=== PATIENT | female | born 1950 | race Caucasian/White ===

== ENCOUNTER → 2018-02-11 10:14 | Outpatient (CLI) | payer MEDICARE, SELFPAY ==
--- NOTE | 2018-02-11 10:16 | DI.RAD.S_ITS ---
PROCEDURE: XR LUMBAR SPINE MIN 4V INDICATIONS: LOW BACK PAIN TECHNIQUE: 5 views of the lumbar spine acquired. COMPARISON: None. FINDINGS: Bones: 5 nonrib-bearing vertebrae are present. There is normal bony alignment except for a very slight degree of convex rightward scoliosis centered at L2. There is no abnormal subluxation on flexion and extension lateral imaging. No vertebral body compression fractures. No suspicious bony lesions. Mild degenerative disc disease is present along the lumbosacral spine until the L5-S1 level was reached where moderate such degeneration and facet osteoarthritis is present Soft tissues: Overlying bowel gas pattern is normal. No suspicious soft tissue calcifications. Flexion/extension: There is normal range of motion, with preserved normal alignment. IMPRESSION: Mild to moderate degenerative disc disease as discussed above along the lumbosacral spine most prominent at L5-S1, without abnormal subluxation during flexion and extension lateral imaging. Slight convex rightward scoliosis present centered at L2. No trauma seen. Dictated by: Endy Oliveira M.D. on 02/11/2018 at 10:56 Approved by: Endy Oliveira M.D. on 02/11/2018 at 10:58
== END ==
PROVIDERS: Family Provider Family Medicine; PCP Family Medicine; Visit Provider Nurse Practitioner Family
DX: M51.37 Other intervertebral disc degeneration, lumbosacral region (principal); M54.5 Low back pain; G89.29 Other chronic pain
CPT/HCPCS: 72110

== ENCOUNTER → 2018-03-29 11:57 | Outpatient (CLI) | payer MEDICARE, SELFPAY ==
--- NOTE | 2018-03-29 | DI.MRI.S_ITS ---
PROCEDURE: MR LUMBAR SPINE WO CON INDICATIONS: LOW BACK PAIN TECHNIQUE: Noncontrast sagittal T1 spin echo and T2 fast echo, sagittal STIR, axial T1 and T2 fast spin echo through the lumbar spine. In cases with scoliosis, additional coronal T2 fast spin echo may be performed. COMPARISON: [facility], MR, L-SPINE WITH AND WITHOUT CONTR, 07/27/2011, 17:40. [facility], CR, XR LUMBAR SPINE MIN 4V, 02/11/2018, 9:54. FINDINGS: Image quality: Excellent. Alignment and Curvature: There is normal bony alignment. Bone Marrow: Marrow is of normal overall signal. No acute vertebral body compression fractures. Spinal Cord: Conus medullaris terminates at the T12 at the colon level. Visualized cord demonstrates normal signal and size. Paraspinous Soft Tissues: No paravertebral masses. L1-L2: Mild to moderate loss disc height and disc desiccation. There is circumferential disc bulge and disc osteophyte complex. The central canal is mildly narrowed. Mild right foraminal stenosis. Patent left neural foramen. There is progression of disc degeneration compared to 07/27/2011. L2-L3: Mild loss disc height and disc desiccation. There is diffuse posterior disc bulge and disc osteophyte complex. The central canal is patent. Mild right foraminal stenosis. Patent left neural foramen. There is no significant change from 07/27/2011. L3-L4: Mild loss disc height and disc desiccation. There is mild posterior disc bulge and disc osteophyte complex. The central canal is mildly narrowed. Mild left foraminal stenosis. No right foramina stenosis. No significant change from 07/27/2011. L4-L5: Preserved disc height and moderate disc desiccation. There is mild posterior disc bulge and disc osteophyte complex. Moderate bilateral facet arthropathy. The central canal is mildly narrowed. No foraminal stenosis. No significant change from 07/27/2011. L5-S1: Moderate to severe loss of disc height and disc desiccation. There is mild posterior disc bulge and disc osteophyte complex. Mild bilateral facet arthropathy. The central canal is patent. Mild bilateral foraminal stenosis. No significant change from 07/27/2011. IMPRESSION: 1. Multilevel degenerative disc disease and facet arthropathy as described. 2. Mild central canal stenosis at L1-L2, L3-L4 and L4-L5. 3. Mild foraminal stenosis at L1-L2 on the right, L3-L4 on the left and L5-S1 bilaterally. Dictated by: Dave Zimmerman M.D. on 03/29/2018 at 15:28 Approved by: Dave Zimmerman M.D. on 03/29/2018 at 15:41
== END ==
PROVIDERS: PCP Family Medicine; Visit Provider Physical Medicine & Rehabilitation Pain Medicine
DX: M51.36 Other intervertebral disc degeneration, lumbar region (principal); M51.37 Other intervertebral disc degeneration, lumbosacral region; M54.5 Low back pain; M47.816 Spondylosis without myelopathy or radiculopathy, lumbar region; M47.817 Spondylosis without myelopathy or radiculopathy, lumbosacral region; M48.061 Spinal stenosis, lumbar region without neurogenic claudication; M48.07 Spinal stenosis, lumbosacral region
CPT/HCPCS: 72148

== ENCOUNTER → 2018-07-06 12:02 | Outpatient (CLI) | payer MEDICARE, SELFPAY ==
--- NOTE | 2018-07-06 | DI.MG.S_ITS ---
BILATERAL DIGITAL SCREENING MAMMOGRAM 3D/2D WITH CAD: 07/06/2018 CLINICAL: Routine screening. Comparison is made to exams dated: 06/17/2017 mammogram, 06/11/2016 mammogram, and 06/10/2015 mammogram - [facility]. There are scattered fibroglandular elements in both breasts. Current study was also evaluated with a Computer Aided Detection (CAD) system. No significant masses, calcifications, or other findings are seen in either breast. There has been no significant interval change. IMPRESSION: NEGATIVE There is no mammographic evidence of malignancy. A 1 year screening mammogram is recommended. This exam was interpreted at Station ID: [id number]. NOTE: For mammograms, a report in lay terms will be sent to the patient. Approximately 15% of breast malignancies will not be visualized mammographically. In the management of a palpable breast mass, a negative mammogram must not discourage biopsy of a clinically suspicious lesion. Electronically Signed By: Becky leslie/john:07/06/2018 16:33:26 copy to: Claudette Ponce letter sent: Normal Exam ACR BI-RADS Category 1: Negative 3341F
== END ==
PROVIDERS: Family Provider Obstetrics & Gynecology; PCP Family Medicine; Visit Provider Family Medicine
DX: Z12.31 Encounter for screening mammogram for malignant neoplasm of breast (principal)
CPT/HCPCS: 77063; 77067

== ENCOUNTER → 2018-11-23 11:40 | Outpatient (CLI) | payer MEDICARE, SELFPAY ==
[2018-11-23 12:21] LABS: Add Manual Diff / Slide Review NO; Basophils Absolute Auto 0 /uL (0-100); Basophils Percent Auto 0.6 % (0-2); Eosinophils Absolute Auto 100 /uL (0-450); Eosinophils Percent Auto 1.3 % (2-4); Hematocrit 39.5 % (36-46); Hemoglobin 13.4 g/dL (12.0-16.0); Lymphocytes Absolute Auto 1000 /uL (1100-4500); Lymphocytes Percent Auto 20.3 % (25-40); Mean Corpuscular Hemoglobin 29.9 PG (26-34); Mean Corpuscular Volume 87.9 fL (80-100); Monocytes Absolute Auto 400 /uL (0-900); Monocytes Percent Auto 7.4 % (3-14); Neutrophils Absolute Auto 3500 /uL (1500-7000); Neutrophils Percent Auto 70.4 % (50-75); Platelet Count 270 X10^3/uL (150-400); Red Blood Cell Count 4.49 X10^6/uL (4.0-5.2); Red Cell Distribution Width 14.8 % (11.6-14.8)
[2018-11-23 12:32] LABS: Alanine Aminotransferase 31 IU/L (9-52); Albumin 4.7 g/dL (3.5-5.0); Albumin Globulin Ratio 1.4 (1.0-2.8); Alkaline Phosphatase 76 U/L (38-126); Aspartate Aminotransferase 28 IU/L (14-36); BUN Creatinine Ratio 25.7 (6-22); Bilirubin Total 0.5 mg/dL (0.2-1.3); Blood Urea Nitrogen 18 mg/dL (7-17); Calcium 10.3 mg/dL (8.4-10.2); Carbon Dioxide 27 mmol/L (22-32); Chloride 103 mmol/L (98-107); Cholesterol 280 mg/dL (140-199); Estimated Glomerular Filt Rate > 60.0 mL/min (>60); Globulin 3.4 g/dL (1.7-4.1); Glucose 102 mg/dL (80-110); HDL Cholesterol 58 mg/dL (40-60); HEMOLYSIS < 15 (0-50); LDL Cholesterol Calculated 175 mg/dL (<100); Sodium 139 mmol/L (137-145); Total Protein 8.1 g/dL (6.3-8.2); Triglycerides 236 mg/dL (35-150)
[2018-11-23 12:33] LABS: C-Reactive Protein Quant < 0.5 mg/dL (<1.0)
[2018-11-23 12:36] LABS: Rheumatoid Factor < 8.6 IU/mL (<12.0)
[2018-11-23 12:42] LABS: Erythrocyte Sedimentation Rate 18 MM/HR (0-20)
[2018-11-23 13:10] LABS: TSH w/ Reflex to FT4 1.43 uIU/mL (0.47-4.68)
== END ==
PROVIDERS: Family Provider Obstetrics & Gynecology; PCP Family Medicine; Visit Provider Family Medicine
DX: M25.50 Pain in unspecified joint (principal); Z00.00 Encounter for general adult medical examination without abnormal findings; Z13.1 Encounter for screening for diabetes mellitus; Z13.220 Encounter for screening for lipoid disorders
CPT/HCPCS: 36415; 80053; 80061; 84443; 85025; 85651; 86140; 86200; 86430

== ENCOUNTER → 2019-04-03 10:11 | Outpatient (CLI) | payer MEDICARE, SELFPAY ==
[2019-04-03 12:03] LABS: Alanine Aminotransferase 48 IU/L (9-52); Albumin 4.5 g/dL (3.5-5.0); Albumin Globulin Ratio 1.5 (1.0-2.8); Alkaline Phosphatase 73 U/L (38-126); Aspartate Aminotransferase 40 IU/L (14-36); BUN Creatinine Ratio 24.3 (6-22); Bilirubin Total 0.4 mg/dL (0.2-1.3); Blood Urea Nitrogen 17 mg/dL (7-17); Calcium 10.5 mg/dL (8.4-10.2); Carbon Dioxide 29 mmol/L (22-32); Chloride 103 mmol/L (98-107); Cholesterol 273 mg/dL (140-199); Estimated Glomerular Filt Rate > 60.0 mL/min (>60); Glucose 94 mg/dL (80-110); HDL Cholesterol 60 mg/dL (40-60); HEMOLYSIS < 15 (0-50); LDL Cholesterol Calculated 167 mg/dL (<100); Potassium 5.3 mmol/L (3.4-5.1); Sodium 139 mmol/L (137-145); Total Protein 7.5 g/dL (6.3-8.2); Triglycerides 230 mg/dL (35-150)
== END ==
PROVIDERS: PCP Family Medicine; Visit Provider Family Medicine
DX: E78.5 Hyperlipidemia, unspecified (principal); R73.03 Prediabetes
CPT/HCPCS: 36415; 80053; 80061

== ENCOUNTER → 2019-04-07 13:44 | Outpatient (CLI) | payer MEDICARE, SELFPAY ==
[2019-04-07 16:07] LABS: Alanine Aminotransferase 38 IU/L (9-52); Albumin 4.7 g/dL (3.5-5.0); Albumin Globulin Ratio 1.7 (1.0-2.8); Alkaline Phosphatase 68 U/L (38-126); Aspartate Aminotransferase 31 IU/L (14-36); BUN Creatinine Ratio 26.7 (6-22); Bilirubin Total 0.4 mg/dL (0.2-1.3); Blood Urea Nitrogen 16 mg/dL (7-17); Calcium 10.7 mg/dL (8.4-10.2); Carbon Dioxide 29 mmol/L (22-32); Chloride 102 mmol/L (98-107); Estimated Glomerular Filt Rate > 60.0 mL/min (>60); Globulin 2.7 g/dL (1.7-4.1); Glucose 100 mg/dL (80-110); HEMOLYSIS < 15 (0-50); Potassium 4.8 mmol/L (3.4-5.1); Sodium 141 mmol/L (137-145); Total Protein 7.4 g/dL (6.3-8.2)
[2019-04-13 14:35] LABS: Parathyroid Hormone Int 29 pg/mL (14-64)
== END ==
PROVIDERS: PCP Family Medicine; Visit Provider Family Medicine
DX: G89.29 Other chronic pain (principal); M54.9 Dorsalgia, unspecified; R73.03 Prediabetes
CPT/HCPCS: 36415; 80053; 83970

== ENCOUNTER → 2019-07-14 09:44 | Outpatient (CLI) | payer MEDICARE, SELFPAY ==
[2019-07-14 11:04] LABS: Alanine Aminotransferase 22 IU/L (<35); Albumin 4.8 g/dL (3.5-5.0); Albumin Globulin Ratio 1.5 (1.0-2.8); Alkaline Phosphatase 75 U/L (38-126); Aspartate Aminotransferase 26 IU/L (14-36); Bilirubin Total 0.6 mg/dL (0.2-1.3); Blood Urea Nitrogen 15 mg/dL (7-17); Calcium 9.8 mg/dL (8.4-10.2); Carbon Dioxide 27 mmol/L (22-32); Chloride 98 mmol/L (98-107); Estimated Glomerular Filt Rate > 60.0 mL/min (>60); Globulin 3.3 g/dL (1.7-4.1); Glucose 98 mg/dL (80-110); HEMOLYSIS < 15 (0-50); Potassium 3.7 mmol/L (3.4-5.1); Sodium 136 mmol/L (137-145); Total Protein 8.1 g/dL (6.3-8.2)
== END ==
PROVIDERS: PCP Family Medicine; Visit Provider Family Medicine
DX: Z51.81 Encounter for therapeutic drug level monitoring (principal); Z79.1 Long term (current) use of non-steroidal anti-inflammatories (NSAID); E83.52 Hypercalcemia
CPT/HCPCS: 36415; 80053

== ENCOUNTER → 2019-07-29 09:28 | Outpatient (CLI) | payer MEDICARE, SELFPAY ==
--- NOTE | 2019-07-29 | DI.MG.S_ITS ---
BILATERAL DIGITAL SCREENING MAMMOGRAM 3D/2D WITH CAD: 07/29/2019 CLINICAL: Routine screening. Comparison is made to exams dated: 07/06/2018 mammogram, 06/17/2017 mammogram, and 06/11/2016 mammogram - [facility]. There are scattered fibroglandular elements in both breasts. Current study was also evaluated with a Computer Aided Detection (CAD) system. No significant masses, calcifications, or other findings are seen in either breast. There has been no significant interval change. IMPRESSION: NEGATIVE There is no mammographic evidence of malignancy. A 1 year screening mammogram is recommended. This exam was interpreted at Station ID: [id number]. NOTE: For mammograms, a report in lay terms will be sent to the patient. Approximately 15% of breast malignancies will not be visualized mammographically. In the management of a palpable breast mass, a negative mammogram must not discourage biopsy of a clinically suspicious lesion. Electronically Signed By: Jimenez campbell/john:07/31/2019 09:09:50 copy to: Claudette Ponce letter sent: Normal Exam ACR BI-RADS Category 1: Negative 3341F
== END ==
PROVIDERS: PCP Family Medicine; Referring Provider Family Medicine; Visit Provider Family Medicine
DX: Z12.31 Encounter for screening mammogram for malignant neoplasm of breast (principal)
CPT/HCPCS: 77063; 77067

== ENCOUNTER → 2019-11-21 09:19 | Outpatient (CLI) | payer MEDICARE, SELFPAY ==
[2019-11-21 11:13] LABS: BUN Creatinine Ratio 25.8 (6-22); Blood Urea Nitrogen 17 mg/dL (7-17); Calcium 9.9 mg/dL (8.4-10.2); Carbon Dioxide 29 mmol/L (22-32); Chloride 99 mmol/L (98-107); Estimated Glomerular Filt Rate > 60.0 mL/min (>60); Glucose 100 mg/dL (80-110); HEMOLYSIS < 15 (0-50); Sodium 134 mmol/L (137-145)
== END ==
PROVIDERS: PCP Family Medicine; Referring Provider Family Medicine; Visit Provider Family Medicine
DX: Z79.1 Long term (current) use of non-steroidal anti-inflammatories (NSAID) (principal)
CPT/HCPCS: 36415; 80048

== ENCOUNTER → 2020-08-15 09:49 | Outpatient (CLI) | payer MEDICARE, SELFPAY ==
[2020-08-15 11:13] LABS: BUN Creatinine Ratio 29.5 (6-22); Blood Urea Nitrogen 18 mg/dL (7-17); Calcium 9.9 mg/dL (8.4-10.2); Carbon Dioxide 30 mmol/L (22-32); Chloride 101 mmol/L (98-107); Estimated Glomerular Filt Rate > 60.0 mL/min (>60); Glucose 100 mg/dL (80-110); HEMOLYSIS < 15 (0-50); Potassium 4.2 mmol/L (3.4-5.1); Sodium 136 mmol/L (137-145)
== END ==
PROVIDERS: PCP Family Medicine; Referring Provider Family Medicine; Visit Provider Family Medicine
DX: Z51.81 Encounter for therapeutic drug level monitoring (principal); Z79.1 Long term (current) use of non-steroidal anti-inflammatories (NSAID)
CPT/HCPCS: 36415; 80048

== ENCOUNTER → 2020-10-14 08:57 | Outpatient (CLI) | payer MEDICARE, SELFPAY ==
[2020-10-14 10:52] LABS: Alanine Aminotransferase 19 IU/L (<35); Albumin 4.6 g/dL (3.5-5.0); Albumin Globulin Ratio 1.6 (1.0-2.8); Alkaline Phosphatase 83 U/L (38-126); Aspartate Aminotransferase 27 IU/L (14-36); BUN Creatinine Ratio 22.9 (6-22); Bilirubin Total 0.4 mg/dL (0.2-1.3); Blood Urea Nitrogen 16 mg/dL (7-17); Calcium 10.7 mg/dL (8.4-10.2); Carbon Dioxide 28 mmol/L (22-32); Chloride 104 mmol/L (98-107); Cholesterol 230 mg/dL (140-199); Estimated Glomerular Filt Rate > 60.0 mL/min (>60); Globulin 2.9 g/dL (1.7-4.1); Glucose 101 mg/dL (80-110); HDL Cholesterol 75 mg/dL (40-60); HEMOLYSIS < 15 (0-50); LDL Cholesterol Calculated 130 mg/dL (<100); Potassium 5.2 mmol/L (3.4-5.1); Sodium 140 mmol/L (137-145); Total Protein 7.5 g/dL (6.3-8.2); Triglycerides 125 mg/dL (35-150)
== END ==
PROVIDERS: PCP Family Medicine; Referring Provider Family Medicine; Visit Provider Family Medicine
DX: E78.5 Hyperlipidemia, unspecified (principal); E83.52 Hypercalcemia; Z79.1 Long term (current) use of non-steroidal anti-inflammatories (NSAID)
CPT/HCPCS: 36415; 80053; 80061

== ENCOUNTER → 2020-10-17 13:46 | Outpatient (CLI) | payer MEDICARE, SELFPAY ==
[2020-10-17] MEDS: COVID-19 VACC #1, MRNA(MOD) 100 MCG/0.5 ML VIAL IM (13:57)
== END ==
PROVIDERS: PCP Family Medicine; Visit Provider Internal Medicine
DX: Z23 Encounter for immunization (principal)
CPT/HCPCS: 0011A; 91301

== ENCOUNTER → 2020-10-25 15:11 | Outpatient (CLI) | payer MEDICARE, SELFPAY ==
--- NOTE | 2020-10-25 15:13 | DI.MG.S_ITS ---
BILATERAL DIGITAL SCREENING MAMMOGRAM 3D/2D WITH CAD: 10/25/2020 CLINICAL: Routine screening. Comparison is made to exams dated: 07/29/2019 mammogram, 07/06/2018 mammogram, and 06/17/2017 mammogram - [facility]. There are scattered fibroglandular elements in both breasts. Current study was also evaluated with a Computer Aided Detection (CAD) system. There is a new irregular asymmetry in the left breast anterior depth central to the nipple seen on the craniocaudal view only. No other significant masses, calcifications, or other findings are seen in either breast. IMPRESSION: INCOMPLETE: NEEDS ADDITIONAL IMAGING EVALUATION The new irregular asymmetry in the left breast is indeterminate. Additional views with possible ultrasound are recommended. This exam was interpreted at Station ID: [id number]. NOTE: For mammograms, a report in lay terms will be sent to the patient. Approximately 15% of breast malignancies will not be visualized mammographically. In the management of a palpable breast mass, a negative mammogram must not discourage biopsy of a clinically suspicious lesion. Electronically Signed By: Abundio Lujan M.D. jr/:10/25/2020 16:43:26 copy to: Claudette Ponce letter sent: Additional Imaging Needed ACR BI-RADS Category 0: Incomplete 3340F
== END ==
PROVIDERS: PCP Family Medicine; Referring Provider Family Medicine; Visit Provider Family Medicine
DX: Z12.31 Encounter for screening mammogram for malignant neoplasm of breast (principal)
CPT/HCPCS: 77063; 77067

== ENCOUNTER → 2020-10-30 12:02 | Outpatient (CLI) | payer MEDICARE, SELFPAY ==
[2020-10-30 13:27] LABS: BUN Creatinine Ratio 27.9 (6-22); Blood Urea Nitrogen 19 mg/dL (7-17); Calcium 10.3 mg/dL (8.4-10.2); Carbon Dioxide 29 mmol/L (22-32); Chloride 102 mmol/L (98-107); Estimated Glomerular Filt Rate > 60.0 mL/min (>60); Glucose 99 mg/dL (80-110); HEMOLYSIS < 15 (0-50); Potassium 4.1 mmol/L (3.4-5.1); Sodium 139 mmol/L (137-145)
[2020-10-31 11:12] LABS: Calcium 9.8 mg/dL (8.7-10.3); Parathyroid Hormone, Intact 31 pg/mL (15-65)
== END ==
PROVIDERS: PCP Family Medicine; Referring Provider Family Medicine; Visit Provider Family Medicine
DX: E83.52 Hypercalcemia (principal); E87.5 Hyperkalemia
CPT/HCPCS: 36415; 80048; 82310; 83970

== ENCOUNTER → 2020-11-01 14:46 | Outpatient (CLI) | payer MEDICARE, SELFPAY ==
--- NOTE | 2020-11-01 14:47 | DI.MG.S_ITS ---
UNILATERAL LEFT DIGITAL DIAGNOSTIC MAMMOGRAM 3D/2D WITH ADDITIONAL VIEWS: 11/01/2020 CLINICAL: Additional evaluation requested from prior study. Comparison is made to exams dated: 10/25/2020 mammogram, 07/29/2019 mammogram, and 07/06/2018 mammogram - [facility]. There are scattered fibroglandular elements in left breast. There is a 0.6 cm oval focal asymmetry in the left breast at 5 o'clock posterior depth. This appears less prominent. No other significant masses or calcifications are seen in the breast. IMPRESSION: INCOMPLETE: NEEDS ADDITIONAL IMAGING EVALUATION The 0.6 cm oval focal asymmetry in the left breast resembles a lymph node and is indeterminate. An ultrasound is recommended for further evaluation and is scheduled to immediately follow this examination. This exam was interpreted at Station ID: [id number]. NOTE: For mammograms, a report in lay terms will be sent to the patient. Approximately 15% of breast malignancies will not be visualized mammographically. In the management of a palpable breast mass, a negative mammogram must not discourage biopsy of a clinically suspicious lesion. Electronically Signed By: Rosas Yousif M.D. aty/:11/01/2020 16:07:30 copy to: Claudette Ponce ACR BI-RADS Category 0: Incomplete 3340F
--- NOTE | 2020-11-01 14:47 | DI.US.S_ITS ---
ULTRASOUND OF LEFT BREAST: 11/01/2020 CLINICAL: Left breast asymmetry. Comparison is made to exams dated: 11/01/2020 mammogram, 10/25/2020 mammogram, 07/29/2019 mammogram, 07/06/2018 mammogram, and 06/17/2017 mammogram - [facility]. Color flow and real-time ultrasound of the left breast were performed. Patterson scale images of the real-time examination were reviewed. No sonographic abnormality is seen to correlate with craniocaudal view asymmetry. No sonographic abnormalities are seen in the left breast. IMPRESSION: PROBABLY BENIGN There is no abnormality seen in the left breast to correspond with the mammography finding which resembles a lymph node. A follow-up left mammogram with possible ultrasound in 6 months is recommended to demonstrate stability. Findings and recommendations were conveyed to the patient during today's evaluation. This exam was interpreted at Station ID: [id number]. Electronically Signed By: Rosas Yousif M.D. aty/:11/01/2020 16:06:55 copy to: Claudette Ponce letter sent: Followup Recommended Ultrasound BI-RADS: 3 Probably benign
== END ==
PROVIDERS: PCP Family Medicine; Referring Provider Family Medicine; Visit Provider Family Medicine
DX: R92.8 Other abnormal and inconclusive findings on diagnostic imaging of breast (principal); N64.89 Other specified disorders of breast
CPT/HCPCS: 76642; 77065; G0279

== ENCOUNTER → 2020-11-14 09:56 | Outpatient (CLI) | payer MEDICARE, SELFPAY ==
[2020-11-14] MEDS: COVID-19 VACC #2, MRNA(MOD) 100 MCG/0.5 ML VIAL IM (10:00)
== END ==
PROVIDERS: PCP Family Medicine; Visit Provider Internal Medicine
DX: Z23 Encounter for immunization (principal)
CPT/HCPCS: 0012A; 91301

== ENCOUNTER → 2021-04-29 12:40 | Outpatient (CLI) | payer MEDICARE, SELFPAY ==
--- NOTE | 2021-04-29 12:41 | DI.MG.S_ITS ---
UNILATERAL LEFT DIGITAL DIAGNOSTIC MAMMOGRAM 3D/2D SHORT-TERM FOLLOW-UP: 04/29/2021 CLINICAL: Short term follow up for the left breast. Comparison is made to exams dated: 11/01/2020 mammogram, 10/25/2020 mammogram, 07/29/2019 mammogram, 07/06/2018 mammogram, 06/17/2017 mammogram, and 11/01/2020 [facility]. There are scattered fibroglandular elements in left breast. There is a 0.6 cm oval focal asymmetry in the left breast at 5 o'clock posterior depth. This is not significantly changed and was not seen on the prior ultrasound. No other significant masses or calcifications are seen in the breast. IMPRESSION: PROBABLY BENIGN The 0.6 cm oval focal asymmetry in the left breast resembles a lymph node and is probably benign. A follow-up mammogram in 6 months is recommended to demonstrate stability. This exam was interpreted at Station ID: [id number]. NOTE: For mammograms, a report in lay terms will be sent to the patient. Approximately 15% of breast malignancies will not be visualized mammographically. In the management of a palpable breast mass, a negative mammogram must not discourage biopsy of a clinically suspicious lesion. Electronically Signed By: Rory mcneil/john:04/29/2021 13:16:25 copy to: Claudette Ponce letter sent: Followup Recommended ACR BI-RADS Category 3: Probably benign 3343F
== END ==
PROVIDERS: PCP Family Medicine; Referring Provider Family Medicine; Visit Provider Family Medicine
DX: R92.8 Other abnormal and inconclusive findings on diagnostic imaging of breast (principal); N64.89 Other specified disorders of breast
CPT/HCPCS: 77065; G0279

== ENCOUNTER → 2021-05-07 11:07 | Outpatient (CLI) | payer MEDICARE, SELFPAY ==
--- NOTE | 2021-05-07 11:10 | DI.RAD.S_ITS ---
PROCEDURE: XR KNEE RT 3V INDICATIONS: right knee pain TECHNIQUE: 3 views of the knee were acquired. COMPARISON: None. FINDINGS: Bones: No fractures or dislocations. No suspicious bony lesions. There is moderate lateral and moderate to severe medial femorotibial joint space narrowing seen, with associated remodeling changes including subchondral sclerosis and osteophyte formation along the jointline. On the sunrise view, there is mild patellofemoral joint space narrowing seen. Osteophyte formation can be seen along the margins of the patella. Soft tissues: Calcification is seen along the joint line, which is attributed to meniscal calcification. There is a aibp-vh-bviucuqi joint effusion. IMPRESSION: Osteoarthritic degenerative changes are seen, which are overall worst involving the medial femorotibial compartment. Dictated by: Suraj Mijares M.D. on 05/07/2021 at 10:30 Approved by: Suraj Mijares M.D. on 05/07/2021 at 10:32
== END ==
PROVIDERS: PCP Family Medicine; Referring Provider Physician Assistant; Visit Provider Physician Assistant
DX: M17.11 Unilateral primary osteoarthritis, right knee (principal); M25.461 Effusion, right knee; M25.761 Osteophyte, right knee
CPT/HCPCS: 73562

== ENCOUNTER → 2021-05-29 11:05 | Outpatient (CLI) | payer MEDICARE, SELFPAY ==
[2021-05-29 12:46] LABS: BUN Creatinine Ratio 20.9 (6-22); Blood Urea Nitrogen 14 mg/dL (7-17); Calcium 10.5 mg/dL (8.4-10.2); Carbon Dioxide 26 mmol/L (22-32); Chloride 104 mmol/L (98-107); Estimated Glomerular Filt Rate > 60.0 mL/min (>60); Glucose 94 mg/dL (80-110); HEMOLYSIS < 15 (0-50); Sodium 139 mmol/L (137-145)
[2021-05-30 14:08] LABS: Calcium 10.6 mg/dL (8.7-10.3); Parathyroid Hormone, Intact 30 pg/mL (15-65)
== END ==
PROVIDERS: PCP Family Medicine; Referring Provider Family Medicine; Visit Provider Family Medicine
DX: Z79.1 Long term (current) use of non-steroidal anti-inflammatories (NSAID) (principal); E83.52 Hypercalcemia
CPT/HCPCS: 36415; 80048; 82310; 83970

== ENCOUNTER → 2021-07-16 10:14 | Outpatient (CLI) | payer MEDICARE, SELFPAY ==
[2021-07-16 13:44] LABS: Blood Urea Nitrogen 17 mg/dL (7-17); Calcium 10.2 mg/dL (8.4-10.2); Carbon Dioxide 29 mmol/L (22-32); Chloride 103 mmol/L (98-107); Estimated Glomerular Filt Rate > 60.0 mL/min (>60); Glucose 95 mg/dL (80-110); HEMOLYSIS < 15 (0-50); Sodium 141 mmol/L (137-145)
== END ==
PROVIDERS: PCP Family Medicine; Referring Provider Family Medicine; Visit Provider Family Medicine
DX: E83.52 Hypercalcemia (principal); Z79.1 Long term (current) use of non-steroidal anti-inflammatories (NSAID)
CPT/HCPCS: 36415; 80048

== ENCOUNTER → 2022-01-05 08:46 | Outpatient (CLI) | payer MEDICARE, SELFPAY ==
--- NOTE | 2022-01-05 08:50 | DI.MG.S_ITS ---
BILATERAL DIGITAL DIAGNOSTIC MAMMOGRAM 3D/2D: 01/05/2022 CLINICAL: Short follow up, due bilateral. Comparison is made to exams dated: 04/29/2021 mammogram, 11/01/2020 mammogram, 10/25/2020 mammogram, 07/29/2019 mammogram, 07/06/2018 mammogram, and 11/01/2020 ultrasound - [facility]. There are scattered fibroglandular elements in both breasts. There is a 0.6 cm oval focal asymmetry in the left breast at 5 o'clock posterior depth. This is less prominent and was not seen on the prior ultrasound. No other significant masses, calcifications, or other findings are seen in either breast. IMPRESSION: PROBABLY BENIGN The 0.6 cm oval focal asymmetry in the left breast resembles fibroglandular tissue or a lymph node and is probably benign. A follow-up diagnostic mammogram in 12 months is recommended. Based on the Tyrer Cuzick model (a risk assessment model) the patient's lifetime risk is 4.2% and her 10 year risk is 2.9%. According to the ACR, ACS, and NCCN guidelines, an annual breast MRI exam along with mammogram is recommended if the patient's lifetime risk is 20% or greater. This exam was interpreted at Station ID: [id number]. NOTE: For mammograms, a report in lay terms will be sent to the patient. Approximately 15% of breast malignancies will not be visualized mammographically. In the management of a palpable breast mass, a negative mammogram must not discourage biopsy of a clinically suspicious lesion. Electronically Signed By: Rory Voss M.D. ar/:01/05/2022 09:15:25 copy to: Claudette Ponce letter sent: Followup Recommended ACR BI-RADS Category 3: Probably benign 3343F
== END ==
PROVIDERS: PCP Family Medicine; Referring Provider Family Medicine; Visit Provider Family Medicine
DX: R92.8 Other abnormal and inconclusive findings on diagnostic imaging of breast (principal); N64.89 Other specified disorders of breast
CPT/HCPCS: 77066; G0279

== ENCOUNTER → 2022-07-03 12:03 | Outpatient (CLI) | payer MEDICARE, SELFPAY ==
[2022-07-03 15:21] LABS: Alanine Aminotransferase 44 IU/L (<35); Albumin 4.6 g/dL (3.5-5.0); Albumin Globulin Ratio 1.5 (1.0-2.8); Alkaline Phosphatase 83 U/L (38-126); Aspartate Aminotransferase 38 IU/L (14-36); BUN Creatinine Ratio 23.4 (6-22); Bilirubin Total 0.5 mg/dL (0.2-1.3); Blood Urea Nitrogen 15 mg/dL (7-17); Calcium 9.8 mg/dL (8.4-10.2); Carbon Dioxide 27 mmol/L (22-32); Chloride 104 mmol/L (98-107); Cholesterol 267 mg/dL (140-199); Estimated Glomerular Filt Rate > 60 mL/min (>60); Globulin 3.1 g/dL (1.7-4.1); Glucose 91 mg/dL (80-110); HDL Cholesterol 62 mg/dL (40-60); HEMOLYSIS < 15 (0-50); LDL Cholesterol Calculated 169 mg/dL (<100); Potassium 5.2 mmol/L (3.4-5.1); Sodium 138 mmol/L (137-145); Total Protein 7.7 g/dL (6.3-8.2); Triglycerides 180 mg/dL (35-150)
== END ==
PROVIDERS: PCP Family Medicine; Referring Provider Family Medicine; Visit Provider Family Medicine
DX: E78.5 Hyperlipidemia, unspecified (principal)
CPT/HCPCS: 36415; 80053; 80061

== ENCOUNTER → 2022-07-13 10:20 | Outpatient (CLI) | payer MEDICARE, SELFPAY ==
[2022-07-13 11:46] LABS: Add Manual Diff / Slide Review NO; Basophils Absolute Auto 0 /uL (0-100); Basophils Percent Auto 0.6 % (0-2); Eosinophils Absolute Auto 200 /uL (0-450); Eosinophils Percent Auto 3.2 % (2-4); Hematocrit 39.7 % (36-46); Hemoglobin 13.3 g/dL (12.0-16.0); Lymphocytes Absolute Auto 1800 /uL (1100-4500); Lymphocytes Percent Auto 35.6 % (25-40); Mean Corpuscular HGB Conc 33.5 % (30-36); Mean Corpuscular Hemoglobin 29.9 PG (26-34); Mean Corpuscular Volume 89.2 fL (80-100); Monocytes Absolute Auto 400 /uL (0-900); Monocytes Percent Auto 8.8 % (3-14); Neutrophils Absolute Auto 2600 /uL (1500-7000); Neutrophils Percent Auto 51.8 % (50-75); Platelet Count 271 X10^3/uL (150-400); Red Blood Cell Count 4.45 X10^6/uL (4.0-5.2); Red Cell Distribution Width 13.7 % (11.6-14.8); White Blood Cell Count 5.1 X10^3/uL (4.5-11.0)
== END ==
PROVIDERS: PCP Family Medicine; Referring Provider Family Medicine; Visit Provider Family Medicine
DX: E78.2 Mixed hyperlipidemia (principal); R79.89 Other specified abnormal findings of blood chemistry
CPT/HCPCS: 36415; 85025

== ENCOUNTER → 2022-12-04 13:40 | Outpatient (CLI) | payer MEDICARE, SELFPAY ==
[2022-12-07 10:38] LABS: Fecal Immunochemical Test Negative (Negative)
== END ==
PROVIDERS: PCP Family Medicine; Referring Provider Family Medicine; Visit Provider Family Medicine
DX: K63.5 Polyp of colon (principal); Z12.11 Encounter for screening for malignant neoplasm of colon
CPT/HCPCS: 82274

== ENCOUNTER → 2023-01-06 10:17 | Outpatient (CLI) | payer MEDICARE, SELFPAY ==
--- NOTE | 2023-01-06 10:18 | DI.MG.S_ITS ---
BILATERAL DIGITAL DIAGNOSTIC MAMMOGRAM 3D/2D: 01/06/2023 CLINICAL: Short term follow up of the left breast, due for bilateral imaging. Comparison is made to exams dated: 01/05/2022 mammogram, 04/29/2021 mammogram, 11/01/2020 mammogram, and 10/25/2020 mammogram - [facility]. There are scattered areas of fibroglandular density in both breasts (category b / 25%-50% glandular tissue). There is a stable 0.6 cm oval focal asymmetry in the left breast at 5 o'clock posterior depth. This was not seen on the prior ultrasound. No other significant masses, calcifications, or other findings are seen in either breast. IMPRESSION: BENIGN The 0.6 cm oval focal asymmetry in the left breast resembles fibroglandular tissue or a lymph node and is benign, stable for 2 years. There is no mammographic evidence of malignancy. Return to annual mammogram screening schedule is recommended. Based on the Tyrer Cuzick model (a risk assessment model) the patient's lifetime risk is 4.0% and her 10 year risk is 2.9%. According to the ACR, ACS, and NCCN guidelines, an annual breast MRI exam along with mammogram is recommended if the patient's lifetime risk is 20% or greater. This exam was interpreted at Station ID: [id number]. NOTE: For mammograms, a report in lay terms will be sent to the patient. Approximately 15% of breast malignancies will not be visualized mammographically. In the management of a palpable breast mass, a negative mammogram must not discourage biopsy of a clinically suspicious lesion. Electronically Signed By: Jefferson Durham M.D. lc/:01/06/2023 10:51:27 copy to: Claudette Ponce letter sent: Normal Exam ACR BI-RADS Category 2: Benign Finding(s) 3342F
== END ==
PROVIDERS: PCP Family Medicine; Referring Provider Family Medicine; Visit Provider Family Medicine
DX: R92.8 Other abnormal and inconclusive findings on diagnostic imaging of breast (principal); N64.89 Other specified disorders of breast
CPT/HCPCS: 77066; G0279

== ENCOUNTER 2023-07-29 07:57 | Day surgery (SDC) | payer MEDICARE, SELFPAY ==
--- NOTE | 2023-07-29 | PATH_ITS ---
[facility] Accession Number: [id number] No. of containers..02 Tissue . 01 Material submitted: . PART A: colon - CECAL POLYP PART B: colon - ASCENDING POLYPS . 01 Diagnosis: A. Cecal Polyp: Tubular adenoma. . B. Ascending Colon Polyps: Tubular adenomas. MRV 08/02/2023 1504 Local . 01 Electronically signed: . Ollie Marques MD, PhD, Pathologist NPI- [id number] . 01 Gross description: . Part A: CECAL POLYP: Received in formalin are 4 fragment(s) of hughes, soft tissue measuring 0.2 x 0.1 x 0.1 cm to 0.5 x 0.3 x 0.2 cm submitted entirely in 1 cassette(s) Part B: ASCENDING POLYPS: Received in formalin are 3 fragment(s) of hughes, soft tissue measuring 0.3 x 0.2 x 0.2 cm to 0.6 x 0.3 x 0.3 cm submitted entirely in 1 cassette(s) /ANA 07/30/2023 2256 Local . 01 Pathologist provided ICD-10: D12.0, D12.2 . 01 CPT . 249859, 313475 Specimen Comment: A courtesy copy of this report has been sent to [phone] Performed at: 01 [facility] [address] [place] [address], [place], [place] [id number] MD Jimenez Sevilla MD Phone: [phone]
--- NOTE | 2023-07-29 08:43 | P.HP_ITS ---
History of Present Illness History of Present Illness Date Patient Seen: 07/29/23 Time Patient Seen: 08:43 Chief complaint: Colonoscopy Narrative: Rabia is a 73 year old woman here for a colonoscopy. Her last one was in 2019 and some polyps were removed. She had another colonoscopy about 10 years before that one. No family history of colon cancer. [facility] Medical History (Updated 07/29/23 @ 08:44 by Joey Long MD) Osteoarthritis of right knee Abnormal mammogram of left breast NSAID long-term use Hypercalcemia Shingles (~2018) Plantar fasciitis Cyst of skin (2009) Colon polyps (2010) Hemorrhoids (02/2015) Fibroids (2003) History of heavy periods (2001) Vertigo (1988) Chicken pox (1954) Mumps (1969) Chronic back pain (1994) Chronic headaches History of SCC (squamous cell carcinoma) of skin (2006) Transient global amnesia (~01/2017) Surgical History History of colonoscopy with polypectomy (2010) Normal colonoscopy (2014) Anesthesia History of back surgery (1994) S/P skin biopsy (02/11/15) Status post hysterectomy (2004) History of third molar tooth extraction Family History Child Age: 42 Mental health problem Bipolar disorder Father Skin cancer Grandfather Cancer Lung cancer Broken hip Grandmother Stroke Mother Cervical cancer Cancer Grandfather Heart disease Heart attack Grandmother Cancer Uterine cancer Brother No problems noted. Sister No problems noted. Sister No problems noted. Social History Smoking Status: Never smoker Meds Home Medications and Allergies Home Medications Medication Instructions Recorded Confirmed Type calcium See Rx Instructions PO .COMPLEX 06/12/21 11/20/22 History meloxicam 15 mg tablet 15 mg PO DAILY #90 tabs 02/19/22 11/20/22 Rx estradiol 0.5 mg tablet 0.5 mg PO DAILY #90 tabs 07/03/22 11/20/22 Rx hydrocodone 5 mg-acetaminophen 325 1 tab PO Q6-8H PRN pain #20 tabs 11/20/22 11/20/22 Rx mg tablet methylprednisolone 4 mg tablets in See Rx Instructions PO PER PKG DIR 06/02/23 Rx a dose pack (Medrol (Ata)) #21 ea cyclobenzaprine 5 mg tablet See Rx Instructions .Route 12/07/22 Rx .COMPLEX #30 tabs trazodone 50 mg tablet 75 mg (1.5 x 50 mg) PO BEDTIME PRN 12/14/22 Rx insomnia #135 tabs sodium,potassium,mag sulfates 17.5 See Rx Instructions PO .COMPLEX 06/02/23 Rx gram-3.13 gram-1.6 gram oral soln #354 mL (Suprep Bowel Prep Kit) Allergies Allergy/AdvReac Type Severity Reaction Status Date / Time No Known Drug Allergies Allergy Verified 11/20/22 11:17 Exam Const General: healthy appearing Resp Effort & Inspection: normal respiratory effort Assessment & Plan Assessment and plan (1) History of colon polyps: Status: Acute Plan We discussed the risks and benefits of colonoscopy for screening and history of polyps and she would like to proceed.
[2023-07-29 08:52] VITALS: BP 139/70; PULSE 83; RESP 16; TEMP 36.2; O2SAT 98
[2023-07-29] MEDS: LACTATED RINGERS 1,000 ML 42 ML IV (09:00)
[2023-07-29 09:35] VITALS: BP 101/56; PULSE 74; RESP 19; TEMP 36.6; O2SAT 95
--- NOTE | 2023-07-29 09:39 | PM.OP.COLON ---
Operative Date/Time/Diagnoses Date of procedure: 07/29/23 Time of procedure: 09:39 Pre-op diagnosis: History of polyps Post-op diagnosis: same Procedure & Clinicians Study performed: Colonoscopy Surgeon: Joey Long Procedure Notes Procedure in detail: Surgeon: Joey Long MD Anesthesia: Magali Galindo CRNA Procedure: The patient was brought to the endoscopy suite, placed in left lateral decubitus position. The patient was connected to monitoring devices. A time-out was performed. Sedation was administered. Once the patient was adequately sedated, a digital rectal exam was performed and was normal. The scope was then inserted and advanced to the cecum where the appendiceal orifice was identified and photographed. The scope was then slowly withdrawn over greater than 6 minutes. The mucosa was thoroughly inspected. There was a 5 mm polyp in the cecum removed with a cold snare. There were two 5 mm polyps in the ascending colon removed with cold snare and sent together. The scope was retroflexed in the rectum. No other abnormalities were seen. The scope was straightened and removed. The patient was awakened and brought to recovery. Scope withdrawal time: 11 minutes Sedation time: 15 minutes EBL: 3 mL Findings: 3 small polyps in the cecum and ascending colon Post-procedure Disposition: PACU
[2023-07-29 09:40] VITALS: BP 106/55; PULSE 73; RESP 15; O2SAT 96
[2023-07-29 09:45] VITALS: BP 105/57; PULSE 68; RESP 12; O2SAT 98
[2023-07-29 09:50] VITALS: BP 119/64; PULSE 72; RESP 14; O2SAT 98
== END 2023-07-29 10:00 | disposition home or self-care (01) ==
PROVIDERS: PCP Family Medicine; Referring Provider Surgery; Visit Provider Surgery
PROC: 0DJD8ZZ Inspection of Lower Intestinal Tract, Via Natural or Artificial Opening Endoscopic (ICD-10-PCS; CPT 45378; principal; 2023-07-29 08:45)
DX: Z12.11 Encounter for screening for malignant neoplasm of colon (principal); Z86.010 Personal history of colon polyps; D12.0 Benign neoplasm of cecum; D12.2 Benign neoplasm of ascending colon
CPT/HCPCS: 45385; J2704

== ENCOUNTER → 2024-01-10 10:58 | Outpatient (CLI) | payer MEDICARE, SELFPAY ==
--- NOTE | 2024-01-10 | DI.MG.S_ITS ---
BILATERAL DIGITAL SCREENING MAMMOGRAM 3D/2D WITH CAD: 01/10/2024 CLINICAL: Routine screening. Comparison is made to exams dated: 01/06/2023 mammogram, 01/05/2022 mammogram, and 10/25/2020 mammogram - . There are scattered areas of fibroglandular density in both breasts (category b / 25%-50% glandular tissue). Current study was also evaluated with a Computer Aided Detection (CAD) system. No significant masses, calcifications, or other findings are seen in either breast. There has been no significant interval change. IMPRESSION: NEGATIVE There is no mammographic evidence of malignancy. A 1 year screening mammogram is recommended. Based on the Tyrer Cuzick model (a risk assessment model) the patient's lifetime risk is 3.7% and her 10 year risk is 3.0%. According to the ACR, ACS, and NCCN guidelines, an annual breast MRI exam along with mammogram is recommended if the patient's lifetime risk is 20% or greater. This exam was interpreted at Station ID: [id number]. NOTE: For mammograms, a report in lay terms will be sent to the patient. Approximately 15% of breast malignancies will not be visualized mammographically. In the management of a palpable breast mass, a negative mammogram must not discourage biopsy of a clinically suspicious lesion. Electronically Signed By: Jefferson french/john:01/10/2024 11:40:34 letter sent: Normal Exam ACR BI-RADS Category 1: Negative 3341F
== END ==
PROVIDERS: PCP Family Medicine; Referring Provider Family Medicine; Visit Provider Family Medicine
DX: Z12.31 Encounter for screening mammogram for malignant neoplasm of breast (principal); R92.323 Mammographic fibroglandular density, bilateral breasts
CPT/HCPCS: 77063; 77067

== ENCOUNTER → 2024-02-09 11:13 | Outpatient (CLI) | payer MEDICARE, SELFPAY ==
[2024-02-09 11:55] LABS: Add Manual Diff / Slide Review NO; Basophils Absolute Auto 0 /uL (0-100); Basophils Percent Auto 0.7 % (0-2); Eosinophils Absolute Auto 100 /uL (0-450); Eosinophils Percent Auto 1.1 % (2-4); Hematocrit 40.6 % (36-46); Hemoglobin 13.6 g/dL (12.0-16.0); Lymphocytes Absolute Auto 1300 /uL (1100-4500); Lymphocytes Percent Auto 23.1 % (25-40); Mean Corpuscular HGB Conc 33.4 % (30-36); Mean Corpuscular Hemoglobin 29.8 PG (26-34); Mean Corpuscular Volume 89.3 fL (80-100); Monocytes Absolute Auto 400 /uL (0-900); Monocytes Percent Auto 7.6 % (3-14); Neutrophils Absolute Auto 3700 /uL (1500-7000); Neutrophils Percent Auto 67.5 % (50-75); Platelet Count 226 X10^3/uL (150-400); Red Blood Cell Count 4.55 X10^6/uL (4.0-5.2); Red Cell Distribution Width 13.7 % (11.6-14.8); White Blood Cell Count 5.4 X10^3/uL (4.5-11.0)
[2024-02-09 12:08] LABS: Alanine Aminotransferase 21 IU/L (<35); Albumin 4.3 g/dL (3.5-5.0); Albumin Globulin Ratio 1.5 (1.0-2.8); Alkaline Phosphatase 79 U/L (38-126); Aspartate Aminotransferase 25 IU/L (14-36); Bilirubin Total 0.6 mg/dL (0.2-1.3); Blood Urea Nitrogen 17 mg/dL (7-17); Calcium 9.7 mg/dL (8.4-10.2); Carbon Dioxide 25 mmol/L (22-32); Chloride 107 mmol/L (98-107); Cholesterol 253 mg/dL (140-199); Estimated Glomerular Filt Rate > 60 mL/min (>60); Globulin 2.8 g/dL (1.7-4.1); Glucose 103 mg/dL (80-110); HDL Cholesterol 61 mg/dL (40-60); HEMOLYSIS < 15 (0-50); LDL Cholesterol Calculated 163 mg/dL (<100); Potassium 4.4 mmol/L (3.4-5.1); Sodium 139 mmol/L (137-145); Total Protein 7.1 g/dL (6.3-8.2); Triglycerides 145 mg/dL (35-150)
[2024-02-09 12:14] LABS: High Sensitivity CRP - Cardiac < 0.3 mg/L (1.0-3.0)
== END ==
PROVIDERS: PCP Family Medicine; Referring Provider Family Medicine; Visit Provider Family Medicine
DX: E83.52 Hypercalcemia (principal); E78.2 Mixed hyperlipidemia; Z78.0 Asymptomatic menopausal state; Z13.9 Encounter for screening, unspecified
CPT/HCPCS: 36415; 80053; 80061; 85025; 86140

== ENCOUNTER → 2024-12-27 14:03 | Outpatient (CLI) | payer MEDICARE, SELFPAY ==
--- NOTE | 2024-12-27 14:06 | DI.RAD.S_ITS ---
PROCEDURE: XR DEXA AXIAL SKELETON INDICATIONS: screen osteoporosis, none on file COMPARISON: [facility], , DEXA AXIAL SKELETON, 07/18/2015, 13:26. FINDINGS: Lumbar Spine: Bone mineral density 1.125 g/cm2, T score 0.7 compared to 1.9 Left Femoral Neck: Bone mineral density 0.710 g/cm2, T score -1.3, compared to 0.1. Left Hip: Bone mineral density 0.947 g/cm2, T score 0, compared to 0.9. Fracture Risk Calculation (when applicable): 10-year fracture risk of a major osteoporotic fracture 10 percent and of a hip fracture 1.7 percent. (T score greater or equal to -1.0 to: NORMAL) (T score from -1.1 to -2.4: OSTEOPENIA) (T score less than or equal to -2.5: OSTEOPOROSIS) IMPRESSION: Progressive bone mineral density loss now mild osteopenia within the left femoral neck denoting 10% bone mineral density loss. Although not osteopenia, there has been approximate 12% bone mineral density loss in spine. Follow-up guidelines as follows: Osteoporosis: Consider a repeat DEXA and Vertebral Fracture Assessment (VFA) exam in 2 years or sooner if medically necessary, to reassess this patient's status. Osteopenia: Consider a repeat DEXA in 2-3 years to reassess this patient's status, or if there is a new clinical indication. Normal: Consider a repeat DEXA in 5 years or sooner, or if there is a new clinical indication. All treatment decisions require clinical judgment and consideration of individual patient factors, including patient preferences, comorbidities, previous drug use, risk factors not captured in the FRAX model (e.g., frailty, falls, vitamin D deficiency, increased bone turnover, interval significant decline in bone density ) and possible under- or over-estimation of fracture risk by FRAX. In addition, the NOF Guide recommends that FDA-approved medical therapies be considered in postmenopausal women and men age >= 50 years with a: * Hip or vertebral (clinical or morphometric) fracture * T-score of <=-2.5 at the spine or hip * Ten-year fracture probability by FRAX of >= 3% for hip fracture or >=20% for major osteoporotic fracture. Dictated by: Muriel Samson M.D. on 12/27/2024 at 19:44 Approved by: Muriel Samson M.D. on 12/27/2024 at 19:46
== END ==
LOC: RAD 14:05
PROVIDERS: PCP Family Medicine; Referring Provider Family Medicine; Visit Provider Family Medicine
DX: Z13.820 Encounter for screening for osteoporosis (principal); M85.852 Other specified disorders of bone density and structure, left thigh; E78.2 Mixed hyperlipidemia; Z78.0 Asymptomatic menopausal state
CPT/HCPCS: 77080

== ENCOUNTER → 2025-01-11 15:59 | Outpatient (CLI) | payer MEDICARE, SELFPAY ==
--- NOTE | 2025-01-11 16:00 | DI.MG.S_ITS ---
MM screening mammo BI: 01/11/2025. BI-RADS: 1 CLINICAL: 74-year old female for bilateral screening mammogram. Tyrer-Cuzick lifetime risk of 3.2%. No personal or first-degree family history of breast cancer. PRIOR EXAMS 01/10/2024, 01/06/2023, 01/05/2022, MAMMOGRAPHY TECHNIQUE: 2D and 3D (tomosynthesis) digital mammographic views obtained, with additional images as needed for full coverage. Current study was also evaluated with a Computer Aided Detection (CAD) system. DENSITY B. There are scattered areas of fibroglandular density. MAMMOGRAPHY FINDINGS Bilateral: No suspicious mass, asymmetry, microcalcification, or other abnormality seen. IMPRESSION: * No evidence of malignancy. RECOMMENDATIONS Bilateral * Annual screening mammography. OVERALL ASSESSMENT CATEGORY BI-RADS-1: Negative. The [employer] recommends annual screening mammography beginning at age 40 for women with average risk of breast cancer. ELECTRONICALLY SIGNED: Ladonna Adair M.D. on 01/12/2025 at 10:58:00 AM PT Interpreting Station ID: [id number]
== END ==
PROVIDERS: PCP Family Medicine; Referring Provider Family Medicine; Visit Provider Family Medicine
DX: Z12.31 Encounter for screening mammogram for malignant neoplasm of breast (principal)
CPT/HCPCS: 77063; 77067

== ENCOUNTER 2025-04-12 12:01 | Emergency (ER) | payer MEDICARE, SELFPAY ==
[2025-04-12 12:04] VITALS: BP 177/95; PULSE 87; RESP 14; TEMP 37.3; O2SAT 99; BMI 26.6
--- NOTE | 2025-04-12 12:19 | ED_ITS ---
<Statement entered by Marcelo Gaviria, DO - 04/12/25 18:55> Co-sign statement: I was available for consultation during this patient's emergency department visit. This chart is being signed by myself for administrative purposes only. I do not have direct contact with this patient during this visit. They were seen independently by the APC. HPI - Skin/Abscess/Foreign Bdy General Chief complaint: Skin/Abscess/Foreign Body Stated complaint: facial sore Time Seen by Provider: 04/12/25 12:19 Source: patient Mode of arrival: Ambulatory Limitations: no limitations History of Present Illness HPI narrative: Ms. De León is a pleasant 74-year-old female with a past medical history of hyperlipidemia who presents to the emergency department for a sore on her left facial cheek that has been getting worse since February. On March 19 the patient noticed a brown spot on her left facial cheek that she had not seen before. Because of this new spot, she started applying topical chemotherapy Fluorouracil/5-FU/Efudex 5% twice a day for the last 7 days. She was previously prescribed this for small precancers on her arms. She is never uses medication on her face before. After reviewing pictures of Efudex treatment reactions, patient stated that she is never seen what the skin reaction looks like. Over the last week since using the cream, she is developed redness and thickened scaling skin where the brown spot used to be. She otherwise feels normal with no fevers, chills or flu-like symptoms. She did attempt to contact her ed special education teacher however they have not responded to her, she does have a follow up appointment for Wednesday. Related Data Home Medications ?Medication ?Instructions ?Recorded ?Confirmed calcium See Rx Instructions PO .COMP JESUSITA 06/12/21 12/26/24 [id number] 18 mg-FA 400 tab PO 12/26/24 5 mcg-calcium 500 mg-vit K 50 mcg tablet (Women's Multivitamin) Previous Rx's ?Medication ?Instructions ?Recorded estradiol 0.025 mg/24 hr 1 patch transdermal 2XW #24 ea 12/26/24 semiweekly transdermal patch progesterone micronized 200 mg 200 mg PO BEDTIME #90 c aps 12/26/24 capsule (Prometrium) trazodone 100 mg tablet 100 mg PO BEDTIME PRN diffic ulty 12/26/24 falling asleep #90 tabs trazodone 50 mg tablet 50 mg PO BEDTIME #90 tabs cephalexin 500 mg capsule 500 mg PO TID 7 days #21 cap s 04/12/25 Allergies Allergy/AdvReac Type Severity Reaction Status Date / Time No Known Drug Allergies Allergy Verified 04/12/25 12:05 Review of Systems Review of Systems ROS Unobtainable: All systems reviewed & are unremarkable except as noted in HPI and below Patient History Medical History Osteoarthritis of right knee Abnormal mammogram of left breast NSAID long-term use Hypercalcemia Shingles (~2018) Plantar fasciitis Cyst of skin (2009) Colon polyps (2010) Hemorrhoids (02/2015) Fibroids (2003) History of heavy periods (2001) Vertigo (1988) Chicken pox (1954) Mumps (1969) Chronic back pain (1994) Chronic headaches History of SCC (squamous cell carcinoma) of skin (2006) Transient global amnesia (~01/2017) Chronic back pain Shoulder pain Surgical History History of colonoscopy with polypectomy (2010) Normal colonoscopy (2014) Anesthesia History of back surgery (1994) S/P skin biopsy (02/11/15) Status post hysterectomy (2004) History of third molar tooth extraction Family History Child Age: 43 Mental health problem Bipolar disorder Father Skin cancer Grandfather Cancer Lung cancer Broken hip Grandmother Stroke Mother Cervical cancer Cancer Grandfather Heart disease Heart attack Grandmother Cancer Uterine cancer Brother No problems noted. Sister No problems noted. Sister No problems noted. Social History marital status: number of children: 7 household members: spouse, children and adopted family lives independently: Yes caregiver/support person: Yes housing: house pets and animals: Yes education level: college occupational status: previously employed current occupational exposures/hazards: No Previous occupational history: Hotel house keeping dayne/restorationist: [employer] special dayne needs: No travel history: over 6 months ago sexual history: Heterosexual leisure activities: music, games, reading and volunteer work seatbelt use: always helmet use: Yes water heater temp set < 120 deg: Yes working smoke detector in home: Yes fire extinguisher in home: Yes carbon monox detector in home: Yes firearms in home: Yes firearms unloaded and locked: Yes do you feel safe at home: Yes second hand exposure: No alcohol intake: never substance use type: prescription drug during the past year weight has: increased > 10 lbs well-balanced diet: about half the time daily servings fruits/ve-1 caffeine: No eating out: 1-3 times/week Type(s) of exercise: walking and occasional exercise frequency: daily duration: 15-30 minutes/day Smoking Status: Unknown if ever smoked Exam Narrative Exam Narrative: GENERAL: 74 year old patient appears stated age. Well-developed patient, in no acute distress. HEAD: Atraumatic. Normocephalic. EYES: No scleral icterus. No injection or drainage. ENT: Nose without bleeding, purulent drainage. Airway patent. NECK: Trachea midline. Cervical ROM intact. CARDIOVASCULAR: Regular rate RESPIRATORY: ?Nonlabored respirations. ?Speaking in clear, full sentences. ?? NEURO: AOx3. ?Clear speech. ?Moves all 4 extremities appropriately. SKIN: On the left facial cheek, there is a 3 cm circumferential area of blanchable erythema with central thickened crust. There is no induration fluctuance or drainage. Initial Vital Signs Initial Vital Signs: Vital Signs Temperature 99.1 F 04/12/25 12:04 Pulse Rate 87 04/12/25 12:04 Respiratory Rate 14 04/12/25 12:04 Blood Pressure 177/95 H 04/12/25 12:04 Pulse Oximetry 99 04/12/25 12:04 Oxygen Delivery Method Room Air 04/12/25 12:04 Course Vital Signs Vital signs: Vital Signs - 8 hr 04/12/25 12:04 04/12/25 13:21 Temperature 99.1 F 99 F Pulse Rate 87 75 Respiratory Rate 14 18 Blood Pressure 177/95 H 158/71 H Pulse Oximetry 99 99 Oxygen Delivery Method Room Air Room Air MDM - Skin/Abscess/Foreign Bdy Medical Records Attestation: I reviewed the patient's medical records. MDM Narrative Medical decision making narrative: 74-year-old female with a past medical history of hyperlipidemia who presents to the emergency department for a sore on her left facial cheek that has been getting worse since February. On March 19 the patient noticed a brown spot on her left facial cheek that she had not seen before. Because of this new spot, she started applying topical chemotherapy Fluorouracil/5-FU/Efudex 5% twice a day for the last 7 days. Differential diagnosis includes but isn't limited to skin cancer, medication reaction, cellulitis, etc. On exam the patient is in no acute distress, nontoxic appearing, vital signs appropriate except for elevated blood pressure. On her left facial cheek she has an erythematous region with central scabbing, clinically consistent with the expected Efudex treatment reaction. However the patient was not advised to use Efudex on the skin lesion and it is unsure with the initial skin lesion was. She sent a picture to her ed special education teacher but they have not yet responded, she does have an appointment Wednesday. We discussed that at this time I recommend she stop using the topical chemotherapy cream and instead use Vaseline/Aquaphor for comfort, I did send her a prescription of cephalexin for possible early cellulitis however I encouraged her to try to contact her ed special education teacher today before starting this but in the event that she can not get clarification, she will then initiate the antibiotic. Patient feels comfortable with this plan, we discussed strict ER return precautions. She is ambulatory and stable for discharge home, BP improved, all questions answered. Discharge Plan Departure Patient Disposition: Home Clinical Impression: Facial rash Instructions: DI for Cellulitis -- Adult Activity Restrictions/Additional Instructions: Dear Ms. De León, Thank you for coming to the emergency department. Today you were evaluated for a rash/skin lesion on your left cheek. As we discussed, I believe the reaction you are experiencing is due to the topical chemotherapy cream you have been applying, fluorouracil. This topical chemotherapy agent is used to treat skin precancers and cancers, and it is possible that the skin is having a reaction because it may have been a precancerous lesion. However, it is essential to follow up with a ed special education teacher for further management of this skin lesion. At this time I recommend you stop using this cream until instructed to do so by a ed special education teacher, start applying Aquaphor/Vaseline to the area, and as we discussed you may also start taking the antibiotic for possible skin infection until you can be seen by your ed special education teacher. Please return to the emergency department immediately if you develop fevers, chills, flu symptoms, spreading redness on the face or any other concerns. Please follow up with your primary care doctor within the next 2-3 days for ER follow-up. (If you do not have a PCP you can call [phone]. ?to schedule an appointment with an [facility] Primary Care Provider) IF YOU DEVELOP ANY NEW OR WORSENING SYMPTOMS, RETURN TO THE ER! Please read the attached instructions, they highlight more specific treatments and interventions for you at home. Thank you for letting me participate in your care, Celina Blankenship PA-C Prescriptions: New cephalexin 500 mg capsule 500 mg PO TID 7 Days Qty: 21 0RF No Action calcium capsule See Rx Instructions PO .COMPLEX Rx Instructions: 600mg daily PO; Women's Multivitamin 18 mg-400 mcg- 500 mg-50 mcg tablet PO estradiol 0.025 mg/24 hr patch semiweekly 1 patch transdermal 2XW Qty: 24 3RF Rx Instructions: apply 1 patch for 3 days alternating with 1 patch for 4 days each week, or can try using once weekly and watch for symptoms later in the week progesterone micronized [Prometrium] 200 mg capsule 200 mg PO BEDTIME Qty: 90 3RF Rx Instructions: Take nightly for 3 months initially, 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 trazodone 50 mg tablet 50 mg PO BEDTIME Qty: 90 3RF Rx Instructions: Take with 100mg for total 150mg trazodone 100 mg tablet 100 mg PO BEDTIME PRN (Reason: difficulty falling asleep) Qty: 90 3RF Rx Instructions: Take with 50mg for total 150mg Referrals: Kimberlee Perez DO [Primary Care Provider, Medical] Stand Alone Forms: Patient Portal/API
[2025-04-12 13:21] VITALS: BP 158/71; PULSE 75; RESP 18; TEMP 37.2; O2SAT 99
== END 2025-04-12 13:23 | disposition home or self-care (01) ==
PROVIDERS: Emergency Provider Physician Assistant; PCP Family Medicine
DX: R21 Rash and other nonspecific skin eruption (principal)
CPT/HCPCS: 99281